=== PATIENT | male | born 1965 | race Caucasian/White ===

== ENCOUNTER 2023-09-15 09:04 | Outpatient (OUT) | payer MEDICAID, SELFPAY ==
--- NOTE | 2023-09-15 09:38 | US_ITS ---
The [address] [address] Patient Name: ANDREW MARIE MRN: [id number] date: 1965 Sex: M Assigned Patient Location: US Current Patient Location: Accession/Order Number: [id number] Exam Date: 09/15/2023 09:40 Report Date: 09/16/2023 11:15 At the request of: NON-STAFF PHYSICIAN Procedure: US right upper quadrant EXAM: US right upper quadrant HISTORY: . Epigasrtic Discomfort R10.13 . COMPARISON: None. TECHNIQUE: Lemon scale and color imaging was performed FINDINGS: The pancreas appears normal. The liver is normal in size. No masses are noted. Color-flow is noted in the portal and hepatic veins. The gallbladder demonstrates no stones or sludge. Patient had no pain upon scanning over the gallbladder. Common bile duct measured 3.6 mm. Right kidney measures 9.9 x 5.3 x 5.1 cm. No solid renal cortical masses or hydronephrosis is noted. No fluid is noted in the right upper quadrant. US/US right upper quadrant IMPRESSION: Normal ultrasound of the right upper quadrant. Electronically authenticated by: PITER MCCARTY Date: 09/16/2023 11:15
== END 2023-09-15 09:05 | disposition home or self-care (01) ==
LOC: US 09:07
DX: R10.13 Epigastric pain (principal)
CPT/HCPCS: 76705